=== PATIENT | female | born 1985 | race Caucasian/White ===

== ENCOUNTER → 2018-08-16 14:38 | Outpatient (CLI) | payer OTHER, SELFPAY ==
[2018-08-16 15:23] LABS: Add Manual Diff / Slide Review NO; Basophils Absolute Auto 0 /uL (0-100); Basophils Percent Auto 0.5 % (0-2); Eosinophils Absolute Auto 0 /uL (0-450); Eosinophils Percent Auto 0.6 % (2-4); Hematocrit 35.6 % (36-46); Hemoglobin 12.3 g/dL (12.0-16.0); Lymphocytes Absolute Auto 1600 /uL (1100-4500); Lymphocytes Percent Auto 28.7 % (25-40); Mean Corpuscular HGB Conc 34.6 % (30-36); Mean Corpuscular Hemoglobin 30.4 PG (26-34); Mean Corpuscular Volume 87.9 fL (80-100); Monocytes Absolute Auto 400 /uL (0-900); Monocytes Percent Auto 6.9 % (3-14); Neutrophils Absolute Auto 3600 /uL (1500-7000); Neutrophils Percent Auto 63.3 % (50-75); Platelet Count 279 X10^3/uL (150-400); Red Blood Cell Count 4.06 X10^6/uL (4.0-5.2); Red Cell Distribution Width 13.1 % (11.6-14.8); White Blood Cell Count 5.7 X10^3/uL (4.5-11.0)
[2018-08-16 16:05] LABS: Appearance Urine UA CLEAR; Bilirubin Urine UA NEGATIVE (NEGATIVE); Color Urine UA YELLOW; Glucose Urine UA NEGATIVE (Negative); Ketones Urine UA NEGATIVE (NEGATIVE); Leukocyte Esterase Urine UA TRACE (NEGATIVE); Nitrite Urine UA NEGATIVE (Negative); Occult Blood Urine UA NEGATIVE (Negative); Protein Urine UA NEGATIVE (Negative); Urobilinogen Urine UA 0.2 E.U./dL (0.2)
[2018-08-16 16:29] LABS: Bacteria Urine Few (2-10); Culture Indicated Urine Cult Not Indicated; RBC Urine 0-1/HPF (0-5/HPF); Squamous Epithelial Cell Urine 1-5 /HPF (0-5/HPF); WBC Urine 0-1/HPF (0-5/HPF)
[2018-08-16 17:13] LABS: Hepatitis B Surface Antigen NEGATIVE s/c (NEGATIVE); Rubella Antibody IgG 65.6 IU/mL (>15)
[2018-08-16 17:33] LABS: Hep C Virus Ab w/Reflex Quant NEGATIVE s/c (NEGATIVE)
[2018-08-16 18:45] LABS: HIV 1 and 2 Antibody NEGATIVE (NEGATIVE)
[2018-08-18 13:08] LABS: RPR Screen Nonreactive (Nonreactive)
== END ==
PROVIDERS: Visit Provider Specialist
DX: Z34.81 Encounter for supervision of other normal pregnancy, first trimester (principal)
CPT/HCPCS: 36415; 80055; 81003; 81015; 86703; 86787; 86803; 86850; 86900; 86901; 87086

== ENCOUNTER → 2018-09-22 16:52 | Outpatient (CLI) | payer OTHER, SELFPAY ==
[2018-09-28 09:14] LABS: Calc Gestational Age 18.3; Cigarette Smoker N; Donated Egg NOT GIVEN; Donor Egg Age NOT GIVEN; Estriol, Free 1.38 ng/mL; Inhibin A, Dimeric 119 pg/mL; Maternal Weight 156 lbs; Number of Fetuses 1; Previous Pregnancy Down Syndro NOT GIVEN; hCG, MoM 0.74; hCG, Serum 16.8 IU/mL
== END ==
PROVIDERS: Visit Provider Specialist
DX: Z34.82 Encounter for supervision of other normal pregnancy, second trimester (principal); Z3A.18 18 weeks gestation of pregnancy
CPT/HCPCS: 36415; 82105; 82677; 84702; 86336

== ENCOUNTER → 2018-10-04 08:55 | Outpatient (CLI) | payer OTHER, SELFPAY ==
--- NOTE | 2018-10-04 08:58 | DI.US.S_ITS ---
PROCEDURE: US OB >= 14 WEEKS FETUS INDICATIONS: ANATOMIC SURVEY OUTSIDE/PRIOR DATING DATA: Last menstrual period (LMP): 03/16/19. LMP-based estimated date of delivery (MAX): 02/21/19. First dating scan (date and location): 07/15/18. Estimated date of delivery (MAX) from first dating scan: 02/18/19. TECHNIQUE: Real-time scanning was performed of the fetus, with image documentation and biometric measurements. Endovaginal scanning: No COMPARISON: None. FINDINGS: General: A single living intrauterine gestation is present. Presentation: Variable. Placenta: Placental position is anterior, without previa. Amniotic fluid index: 19.4 cm, normal range is 5-24 cm. heart rate: 139 beats per minute. Maternal cervical canal: 3.9 cm long. Normal lower limit is 2.5 cm. biometrics: Biparietal diameter: 21 weeks 3 days Head circumference: 21 weeks 0 days Abdominal circumference: 21 weeks 5 days Femur length: 21 weeks Estimated gestational age from initial scan: 20 weeks 3 days Composite gestational age from present scan: 21 weeks 3 days Estimated weight and percentile: 416 g; 89th percentile Measurement variability for biometric dating: +/- 7 days from 14 weeks to 15 weeks 6 days gestation, +/- 10 days from 16 weeks to 21 weeks 6 days gestation, +/- 2 weeks from 22 weeks to 27 weeks 6 days gestation, +/- 3 weeks for 28 weeks gestation or later. weight reference: 4500 g or EFW >90/95% is considered macrosomia or large for gestational age. EFW <10% is small for gestational age. EFW 5% or less is considered intra-uterine growth restriction. Anatomic survey: Neuro: Ventricles are non-dilated at less than 10 mm. Cisterna magna is normal at 3-11 mm. Cerebellum is normal in size and morphology. Nuchal skin fold: Normal at less than 6 mm between 14-21 weeks gestational age. Face: Nose and lips, facial profile are normal. Spine: Not well-seen. Heart: 4-chambered heart is present, with normal ventricular outflow tracts. Diaphragm: Diaphragm is intact. Stomach: Left-sided stomach is present. Possible small hepatic calcification. Kidneys: Prominence of the left renal pelvis measuring 5.1 mm. Normal appearance of the right kidney.. Normal is less than 5 mm in 2nd trimester, less than 7 mm in 3rd trimester. Cord: 3-vessel cord has orthotopic insertion. Bladder: Normal in size. Extremities: All 4 extremities identified. IMPRESSION: 1. Single living IUP redemonstrated and interval growth is upper limits of normal. 2. Spine not well visualized and there is mild left renal pyelectasis. Short-term followup ultrasound recommended. 3. Possible small hepatic calcification which can be reassessed on followup examination. Dictated by: Waldemar PATEL Interpreted: Katelyn Mei MD on 10/04/2018 at 13:16 Approved by: Katelyn Mei M.D. on 10/04/2018 at 14:01
== END ==
PROVIDERS: PCP Physician Assistant Medical; Visit Provider Specialist
DX: Z34.82 Encounter for supervision of other normal pregnancy, second trimester (principal); Z3A.21 21 weeks gestation of pregnancy
CPT/HCPCS: 76811

== ENCOUNTER → 2018-11-21 08:37 | Outpatient (CLI) | payer OTHER, SELFPAY ==
[2018-11-21 10:21] LABS: Hemoglobin 11.2 g/dL (12.0-16.0)
[2018-11-21 10:42] LABS: GTT (PREG) 1 Hour PP 50gm Dose 107 mg/dL (76-139)
== END ==
PROVIDERS: PCP Physician Assistant Medical; Visit Provider Specialist
DX: Z3A.26 26 weeks gestation of pregnancy (principal)
CPT/HCPCS: 36415; 82950; 85014; 85018

== ENCOUNTER → 2019-01-18 15:59 | Outpatient (CLI) | payer OTHER, SELFPAY ==
[2019-01-19 18:51] LABS: Strep Grp B PCR NEG for Grp B Strep
== END ==
PROVIDERS: PCP Physician Assistant Medical; Visit Provider Specialist
DX: Z34.03 Encounter for supervision of normal first pregnancy, third trimester (principal); Z3A.35 35 weeks gestation of pregnancy
CPT/HCPCS: 87653

== ENCOUNTER 2019-02-15 18:38 | Inpatient (IN) | payer OTHER, SELFPAY ==
[2019-02-15] MEDS: miSOPROStoL 25 MCG TABLET VAG (20:09)
[2019-02-15 22:10] LABS: Add Manual Diff / Slide Review NO; Basophils Absolute Auto 100 /uL (0-100); Basophils Percent Auto 0.7 % (0-2); Eosinophils Absolute Auto 0 /uL (0-450); Eosinophils Percent Auto 0.3 % (2-4); Hematocrit 29.9 % (36-46); Hemoglobin 10.4 g/dL (12.0-16.0); Lymphocytes Absolute Auto 1300 /uL (1100-4500); Lymphocytes Percent Auto 17.8 % (25-40); Mean Corpuscular Volume 85.8 fL (80-100); Monocytes Absolute Auto 600 /uL (0-900); Monocytes Percent Auto 7.5 % (3-14); Neutrophils Absolute Auto 5600 /uL (1500-7000); Neutrophils Percent Auto 73.7 % (50-75); Platelet Count 212 X10^3/uL (150-400); Red Blood Cell Count 3.48 X10^6/uL (4.0-5.2); Red Cell Distribution Width 13.1 % (11.6-14.8); White Blood Cell Count 7.6 X10^3/uL (4.5-11.0)
[2019-02-16] MEDS: miSOPROStoL 25 MCG TABLET VAG (00:11)
[2019-02-16] MEDS: LACTATED RINGERS 1,000 ML 100 ML IV ×2 (02:00→05:04)
--- NOTE | 2019-02-16 04:36 | P.HPOB_ITS ---
OB HPI Date/Time Date of admission: 02/15/19 Date Patient Seen: 02/16/19 Time Patient Seen: 04:40 History of Present Condition Chief complaint: eval of labor : 4 Para: 3 Estimated Date of Delivery: 02/21/19 Estimated Gestational Age (weeks): 39 Narrative: Inna Colmenares is a 33 year old female admitted for induction for child care sitter reasons Indications Indication for induction OB: other History of Present care: good care, initiated at week # (8), number of visits (12) and sam nds weight gain (24) Dating criteria: LMP confirmed by 1st trimester US Ultrasounds: normal mid trimester US Obstetrical complications: none Medical complications: none Preadmission Labs Blood type: O (+) positive -: Antibody screen: negative, GBS status: negative, HBsAG: negative, HIV: negative and RPR/VDLR: negative -: Chlamydia screen: not detected and Gonorrhea screen: not detected -: Rubella: immune and Varicella: immune Quad screen: Normal 1 hr GTT: 107 Prior (ies) History: 12/12/2005 40 weeks 7 lb 14 oz male vaginal delivery 05/10/2008 40 weeks 8 lb 3 oz male vaginal delivery 01/01/2016 40 week 7 lb 15 oz male vaginal delivery Evaluation Evaluation Baseline heart rate: 120 Variability: Moderate (11-25) monitor accelerations: Present monitor decelerations: Absent Contraction Frequency (minutes): 3 Uterine Contraction Intensity: Strong/Firm Category of Tracing: I Cervical dilation (cm): 4 Cervical effacement (%): 90 station: 0 Laboratory results: Laboratory Tests 02/15/19 02/15/19 21:50 21:50 WBC 7.6 RBC 3.48 L Hgb 10.4 L Hct 29.9 L MCV 85.8 MCH 30.0 MCHC 35.0 RDW 13.1 Plt Count 212 Neut % (Auto) 73.7 Lymph % (Auto) 17.8 L [place] % (Auto) 7.5 Eos % (Auto) 0.3 L Baso % (Auto) 0.7 Neut # (Auto) 5600 Lymph # (Auto) 1300 [place] # (Auto) 600 Eos # (Auto) 0 Baso # (Auto) 100 Blood Type O Positive Antibody Screen Negative [facility] Surgical History (Updated 02/13/19 @ 11:36 by Susanna Grover MD) H/O hemorrhoidectomy (Acute ~2006) H/O shoulder surgery (Acute ~2011) Social History Smoking Status: Never smoker Meds Home Medications and Allergies Home Medications Medication Instructions Recorded Confirmed Type acetaminophen 325 mg capsule 325 mg PO Q6H PRN 07/12/18 07/12/18 History diphenhydramine HCl 50 mg capsule 50 mg PO BEDTIME PRN 07/12/18 07/12/18 History prenat.vits,geo,era-kjuz-jtlqr 1 tab PO DAILY 07/12/18 07/12/18 History breast pump #1 each 02/03/19 02/03/19 Rx Allergies Allergy/AdvReac Type Severity Reaction Status Date / Time No Known Drug Allergies Allergy Verified 07/12/18 16:36 Review of Systems Review of Systems ROS Unobtainable: All systems reviewed & are unremarkable except as noted in HPI and below Exam Vital Signs (past 8 hours): Blood pressure 108/64, pulse 78, temperature 37.3? Narrative Exam Narrative: HEENT exam within normal limits. Lungs are clear to auscultation percussion. Heart is regular rate and rhythm no S3-S4 or murmurs. Abdomen is gravid. Infant is vertex. Extremities without edema and nontender Objective Labs Result Diagrams: 02/15/19 21:50 Labs: Laboratory Results - last 24 hr 02/15/19 02/15/19 21:50 21:50 WBC 7.6 RBC 3.48 L Hgb 10.4 L Hct 29.9 L MCV 85.8 MCH 30.0 MCHC 35.0 RDW 13.1 Plt Count 212 Neut % (Auto) 73.7 Lymph % (Auto) 17.8 L [place] % (Auto) 7.5 Eos % (Auto) 0.3 L Baso % (Auto) 0.7 Neut # (Auto) 5600 Lymph # (Auto) 1300 [place] # (Auto) 600 Eos # (Auto) 0 Baso # (Auto) 100 Blood Type O Positive Antibody Screen Negative Assessment and Plan Assessment and Plan Assessment and Plan narrative: 39 week gestation admitted for induction for child care sitter now in active labor
[2019-02-16] MEDS: OXYTOCIN 10 UNIT/ML VIAL IM (05:30)
--- NOTE | 2019-02-16 05:42 | PM.OBPRVD ---
 Events: Labor Induction (For children's lunchroom supervisor issues) Labor & Delivery Delivery date: 02/16/19 Intrapartal events: None Cervical ripening method: per misoprostal protocol Delivery monitor: external FHT Route of delivery: L&D Laceration Description: None Estimated blood loss (mL): 100 Anesthesia type: Spinal Narrative: Patient arrived on Labor and delivery for induction for children's lunchroom supervisor issues. She received Cytotec x2. She received an epidural catheter for pain control. heart tones category 1 to category 2 throughout labor. She had a spontaneous vaginal delivery a viable male infant who was placed immediately on maternal abdomen. There was a shoulder cord. After the cord stopped pulsating the cord was clamped, cut, and cord bloods obtained. The placenta delivered spontaneously, intact, with 3 vessels. There were no cervical, vaginal, perineal tears. Both mother doing well. Baby weighs 7 lb 14 oz Baby 1: gender: Male Presentation: vertex position: Right Occiput Anterior Placenta delivery description: Spontaneous cord vessel description: 3 Vessels score (1 min): 9 score (5 min): 9 Plan for aftercare: Routine care
[2019-02-16] MEDS: IBUPROFEN 600 MG TABLET PO ×3 (07:52→21:16)
[2019-02-16] MEDS: DOCUSATE 100 MG CAPSULE PO (07:53)
[2019-02-16] MEDS: FERROUS GLUCONATE 324 MG TABLET PO (07:54)
[2019-02-16] MEDS: ACETAMINOPHEN 325 MG TABLET 650 MG PO (12:16)
[2019-02-16] MEDS: CLOTRIMAZOLE/BETAMETHASONE CRM 15 GM 1 APPLIC TOP (18:21)
[2019-02-16] MEDS: HYDROCODONE/ACET 5/325 TABLET 2 TAB PO (21:17)
[2019-02-17] MEDS: IBUPROFEN 600 MG TABLET PO ×2 (03:24→09:46)
[2019-02-17 06:14] LABS: Hematocrit 26.3 % (36-46); Hemoglobin 9.4 g/dL (12.0-16.0)
--- NOTE | 2019-02-17 07:39 | PM.OBDS.1 ---
Discharge Providers Provider Date of admission: 02/15/19 18:38 Discharge Date: 02/17/19 Primary care physician: Wilberto Berg Consults: 02/16/19 03:24 Consult to Anesthesiology Urgent Comment: Consulting Provider: Anesthesiologist Reason for consultation: Epidural Has provider been notified: No 02/17/19 05:40 Consult to Driller Operator Routine Comment: Discharge provider: Susanna Grover MD Summary Hospital Course Date Patient Seen: 02/17/19 Time Patient Seen: 07:39 Procedures: Prostin induction, epidural catheter, vaginal delivery Hospital Course: Patient was admitted for Prostin induction for availability of children's entertainer. She went into active labor with the Prostin and received an epidural catheter for pain control. She had a spontaneous vaginal delivery with no tears. Both infant mother doing well post . Peripartum Data Infant Delivery Method: Natural Vaginal Laceration description: None Procedures: Prostin induction, epidural catheter, vaginal delivery complications: none [place] 1: Gender: Male Disposition of : home Discharge Diagnosis (1) Vaginal delivery: Status: Acute (2) Anemia: Status: Acute Status at Discharge Cognitive/behavioral status at discharge: oriented Functional status at discharge: independent ambulation Overall status at discharge: patient is progressing back to baseline Time Spent with Patient Time attestation: Total time spent providing and/or coordinating discharge services: Time spent: Less than 30 minutes Objective Labs Result Diagrams: 02/17/19 05:40 Labs: Laboratory Results - last 24 hr 02/17/19 05:40 Hgb 9.4 L Hct 26.3 L Exam Vital Signs (past 8 hours): Blood pressure 111/73, pulse 70, temperature 98.8? Narrative Exam Narrative: Abdomen is soft, nontender. Uterus is firm, at U, nontender. Mild lochia. Extremities without edema and nontender. Patient is O-positive, rubella immune, received Tdap in the 3rd trimester. Discharge Plan Discharge Plan Patient Disposition: Home Discharge orders & Medications Prescriptions: New ibuprofen 600 mg Tablet 600 mg PO Q6HR PRN (Reason: Pain, Mild (1-3)) Qty: 30 RF: 0 ferrous gluconate 324 mg (38 mg iron) Tablet 324 mg PO DAILY Qty: 60 RF: 0 Continued diphenhydramine HCl [Unisom SleepGels] 50 mg capsule 50 mg PO BEDTIME PRN (Reason: Insomnia) RF: 0 prenat.vits,geo,yli-odjd-ovlla tablet 1 tab PO DAILY RF: 0 acetaminophen [Tylenol] 325 mg capsule 325 mg PO Q6H PRN (Reason: Pain, Mild) RF: 0 (DME) breast pump [Pump In Style Advanced] Device See Rx Instructions .ROUTE .MEDSUPPLY Qty: 1 RF: 0 Follow up/Referrals: Susanna Grover MD [Physician] - 1 Month Wilberto Berg [Primary Care Provider] - Diet/Activity/Treatments Diet: Regular Activity: Nothing in vagina for 4 weeks Visit Report/Discharge Packet Stand Alone Forms: Discharge: Care Discharge Data Primary Care Provider: Wilberto Berg
[2019-02-17 08:58] VITALS: BP 105/66; PULSE 66; RESP 18; TEMP 36.7
[2019-02-17] MEDS: FERROUS GLUCONATE 324 MG TABLET PO (09:46)
[2019-02-17] MEDS: DOCUSATE 100 MG CAPSULE PO (09:46)
== END 2019-02-17 10:54 | disposition home or self-care (01) | DRG 807 ==
PROVIDERS: Admitting Provider Specialist; PCP Physician Assistant Medical; Visit Provider Specialist
DX: O99.02 Anemia complicating childbirth (principal); Z37.0 Single live birth; Z3A.39 39 weeks gestation of pregnancy; D64.9 Anemia, unspecified
CPT/HCPCS: 01967; 36415; 59050; 59200; 59400; 85014; 85018; 85025; 86850; 86900; 86901; G0379; J2590

== ENCOUNTER → 2019-11-20 12:23 | Outpatient (CLI) | payer OTHER, SELFPAY ==
[2019-11-20 13:24] LABS: Add Manual Diff / Slide Review NO; Basophils Absolute Auto 0 /uL (0-100); Basophils Percent Auto 0.9 % (0-2); Eosinophils Absolute Auto 100 /uL (0-450); Eosinophils Percent Auto 2.1 % (2-4); Hematocrit 36.8 % (36-46); Hemoglobin 12.5 g/dL (12.0-16.0); Lymphocytes Absolute Auto 1600 /uL (1100-4500); Lymphocytes Percent Auto 28.7 % (25-40); Mean Corpuscular HGB Conc 34.1 % (30-36); Mean Corpuscular Hemoglobin 29.2 PG (26-34); Mean Corpuscular Volume 85.6 fL (80-100); Monocytes Absolute Auto 400 /uL (0-900); Monocytes Percent Auto 7.6 % (3-14); Neutrophils Absolute Auto 3400 /uL (1500-7000); Neutrophils Percent Auto 60.7 % (50-75); Platelet Count 255 X10^3/uL (150-400); Red Cell Distribution Width 12.5 % (11.6-14.8); White Blood Cell Count 5.6 X10^3/uL (4.5-11.0)
[2019-11-20 14:01] LABS: HEMOLYSIS < 15 (0-50); Iron 123 ug/dL (37-170)
[2019-11-20 14:13] LABS: Percent Iron Saturation 35 % (15-50); Total Iron Binding Capacity 349 ug/dL (265-497); Transferrin 274 mg/dL (206-381)
[2019-11-20 14:36] LABS: Ferritin 15 ng/mL (6-137)
[2019-11-20 14:37] LABS: TSH w/ Reflex to FT4 0.83 uIU/mL (0.47-4.68)
[2019-11-20 15:05] LABS: Vitamin D 25 Hydroxy (D3) 36.2 ng/mL (30.0-100.0)
== END ==
PROVIDERS: PCP Registered Nurse Diabetes Educator; Referring Provider Registered Nurse Diabetes Educator; Visit Provider Registered Nurse Diabetes Educator
DX: L65.9 Nonscarring hair loss, unspecified (principal); R53.83 Other fatigue
CPT/HCPCS: 36415; 82306; 82728; 83540; 83550; 84443; 85025

== ENCOUNTER → 2020-02-06 09:07 | Outpatient (CLI) | payer OTHER, SELFPAY ==
[2020-02-06 13:57] LABS: COVID19 -Nasal RAPID Negative (Negative)
== END ==
PROVIDERS: PCP Registered Nurse Diabetes Educator; Visit Provider Physician Assistant
DX: Z01.812 Encounter for preprocedural laboratory examination (principal)
CPT/HCPCS: 87635

== ENCOUNTER 2020-02-09 08:17 | Day surgery (SDC) | payer OTHER, SELFPAY ==
[2020-02-05 12:39] VITALS: BMI 26.7
[2020-02-09] VITALS (17 sets, daily range): BP systolic 75–121; BP diastolic 41–72; PULSE 52–98; RESP 12–22; TEMP 36.3–37.6; O2SAT 94–100; BMI 26.5
[2020-02-09] MEDS: LACTATED RINGERS 1,000 ML 42 ML IV ×2 (08:47→11:44)
--- NOTE | 2020-02-09 09:48 | PM.GYNHP.1 ---
History of Present Illness History of Present Illness Reason for admission: pelvic prolapse (Cystocele) Narrative: Inna Richardson is a 34 year old female with complaints prolapse cystocele predominant. Patient also with menorrhagia. [facility] Medical History (Updated 02/09/20 @ 09:52 by Susanna Grover MD) Vaginal delivery (Inactive) Surgical History H/O hemorrhoidectomy (Acute ~2006) H/O shoulder surgery (Acute ~2011) Social History household members: spouse and children Smoking Status: Never smoker alcohol intake: current Meds Home Medications and Allergies Home Medications Medication Instructions Recorded Confirmed Type prenat.vits,geo,yll-iuzx-azypt 1 tab PO DAILY 07/12/18 02/09/20 History breast pump #1 each 02/03/19 11/20/19 Rx escitalopram oxalate 10 mg tablet 10 mg PO DAILY #90 tab 11/20/19 02/09/20 Rx ibuprofen 200 mg capsule 200 mg PO Q6H PRN 11/20/19 02/05/20 History melatonin 5 mg capsule 5 mg PO PRN PRN 11/20/19 02/09/20 History Allergies Allergy/AdvReac Type Severity Reaction Status Date / Time meperidine [From Demerol] AdvReac Intermediate Vomiting Verified 02/09/20 08:27 Review of Systems Review of Systems Narrative: Patient has minimal stress urinary incontinence. No pain with intercourse. Patient tried pessary and physical therapy for prolapse without significant improvement. She denies any problems with bowel movements. She does complain of heavy menses. ROS: Yes All systems reviewed with the patient and are negative except as otherwise documented Exam Vital Signs (past 8 hours): - 02/09/20 08:32 Temperature 98.3 F Pulse Rate 59 L Respiratory Rate 18 Blood Pressure 114/71 Pulse Oximetry 99 Oxygen Delivery Method Room Air Oxygen Flow Rate 0 Narrative Exam Narrative: On physical exam HEENT exam within normal limits. Lungs are clear to auscultation and percussion. Heart is regular rate and rhythm no S3-S4 or murmurs. No thyromegaly. Abdomen is soft, nontender with no palpable organomegaly. The patient's external genitalia are normal. Vaginal tissue is normal. Cervix is normal. Uterus is small, mobile, nontender. No adnexal masses or tenderness. Rectal exam does not reveal any masses and no significant rectocele. With standing Valsalva the patient does have a cystocele that prolapses just out of the hymen. The uterus does not prolapse significantly with standing Valsalva. Consent form was reviewed with the patient. Risk of damage to bladder, bowel, ureters, urethra that could require additional surgery to repair. 10% risk of infection that could require additional antibiotics. 5% risk of scar tissue that could cause pain with intercourse. Up to 30% risk of additional or recurrent prolapse after the procedure. Reaction to medication or anesthetic that could cause or permanent partial disability. Minimal risk for bleeding enough to require blood transfusion. Consent form was signed and questions answered. Consent form for the Mirena IUD was reviewed with the patient. She has had the IUD twice before and she has no additional questions. Assessment & Plan Assessment and plan (1) Cystocele without uterine prolapse: Status: Acute (2) Menorrhagia with irregular cycle: Status: Acute Assessment & Plan narrative: Patient with uterovaginal prolapse cystocele predominant. Patient is requesting anterior and posterior repair. She will be evaluated to see if sacrospinous ligament fixation is appropriate at the time. Patient with menorrhagia requesting placement of her Mirena IUD. COVID-19 COVID-19 status: Negative Result date/Date tested (Pos, Neg/Pending): 02/06/20
--- NOTE | 2020-02-09 09:53 | PM.PREOP ---
Pre-operative Note COVID-19 COVID-19 status: Negative Result date/Date tested (Pos, Neg/Pending): 02/06/20 Interval Note History & Physical reviewed/Exam performed by Physician: Yes Changes to H&P: No
[2020-02-09] MEDS: CEFAZOLIN 2 GM/100 ML FROZ.PIGGY IV (09:55)
--- NOTE | 2020-02-09 10:13 | SUR.OPER ---
Lithotomy on padded OR bed, head on pillow, arms secured on padded arm boards at <90 degrees abduction. Legs secured in padded yellow fins stirrups.
--- NOTE | 2020-02-09 10:17 | SUR.OPER ---
Lithotomy on padded OR bed, head on pillow, arms secured on padded arm boards at <90 degrees abduction. Legs secured in padded yellow fins stirrups.
[2020-02-09] MEDS: BUPIVACAINE 0.5% W/ EPI (PF) 30 ML VIAL 10 ML INJ (10:25)
--- NOTE | 2020-02-09 11:12 | PM.OP.1 ---
Operative Date/Time/Diagnoses Date of procedure: 02/09/20 Time of procedure: 11:12 Pre-op diagnosis: Uterovaginal prolapse and menorrhagia Post-op diagnosis: same Procedure & Clinicians Procedure: Anterior and posterior repair with sacrospinous ligament fixation, perineoplasty and placement of Mirena IUD Same procedure as scheduled: Yes Indications: Symptomatic uterovaginal prolapse with menorrhagia and need for control Surgeon: Susanna Grover Click Yes if Unassisted: Yes Anesthesia Type: General Operative Notes Findings: Cystocele that prolapses out of the hymen, uterus prolapsed down to the hymen with traction, mild rectocele, mildly gaping introitus, uterus not enlarged with no adnexal masses on exam under anesthesia Closure Type: primary Specimen(s): none sent Prosthetic devices, grafts, tissues, transplants, or devices: Mirena IUD Applied: catheter (Hudson) and other (Vaginal packing) Estimated Blood Loss (mL): 50 Blood products transfused: none Procedure in detail: Patient was brought to the operating room where she was placed [facility] stirrups and prepped and draped in the usual sterile fashion. A 20 point check system was reviewed prior to the beginning of the case. Pulsatile stockings were in place and functional throughout the case. Warming was in place. 2 g of Ancef were in prior to beginning of the case. A Hudson catheter was placed. A dilute solution of 1% lidocaine with epinephrine was injected over the cystocele. An incision was made over the cystocele and the incision dissected laterally. Plicating sutures were made over the cystocele with 2 0 Vicryl suture. The incision was closed with 2-0 Vicryl suture. Next a wedge shaped tissue was taken out of the posterior vaginal opening. The area over the rectocele was injected with a dilute solution of 1% lidocaine with epinephrine. An incision was made over the rectocele with the scalpel. The dissection was undertaken laterally. Prolene suture with the Capio passer was placed through the uterosacral ligament on the right side and sutured to the underside of the cervix. The Capio Passer was placed through the uterosacral ligament on the left side and sutured to the underside of the vagina on the left side. A finger was placed in the rectum to be sure there were no sutures placed through the rectal mucosa. The uterosacral sutures were tightened down. 0 Vicryl suture was used to plicate over the rectocele. And the vaginal incision was closed with 2-0 Vicryl suture. The perineal body was built up with 2 0 Vicryl sutures. The skin was closed with the 2-0 Vicryl suture. Vaginal packing was placed in the vagina and the Hudson left in place. Counts of instruments and sponges were correct. The patient went to recovery room in good condition. Complications: none
--- NOTE | 2020-02-09 11:41 | SUR.PHASEI ---
Pt arrived to PACU with oral airway and chin support as well and 02 added for patent airway, BP low, treated with ephedrine given by Dr. Childers, IV fluids wide open and HOB down. Shakes treated with bear hugger.
[2020-02-09] MEDS: fentaNYL 100 MCG/2 ML INJ IV (11:47)
--- NOTE | 2020-02-09 11:49 | SUR.PHASEI ---
Fentanyl given for pain, report to KIMBERLEE Aragon and Cecilia MOHAN
[2020-02-09] MEDS: OXYCODONE IR 5 MG TABLET PO ×3 (12:19→20:27)
[2020-02-09] MEDS: ONDANSETRON 4 MG/2 ML INJ IV ×2 (12:19→18:15)
[2020-02-09] MEDS: LACTATED RINGERS 1,000 ML 100 ML IV (13:15)
--- NOTE | 2020-02-09 13:49 | PC.NURSE ---
Day Shift- Report rec'd from KIMBERLEE negro in PACU at 1225. pt arrived to unit at 1240 to room 220. Pt assisted herself from PACU stretcher to bed. Rated 7/10 pain to coccyx area, assisted onto left side per pt request, 1 pillow behind her back and 1 in between BLE. Ice pack also placed to coccyx and lower back area., pt stated this was helping. Pt's Ojnathon in room, aware to keep mask on at all times. Pt oriented to call light, bed functions. Calf SCD's to BLE per order. Vaginal packing in place, dara-pad has scant amount of sang drainage. Hudson insitu draining clear yellow urine. IVF infusing to right FA PIV per order. No other voiced concerns, call light within reach.
--- NOTE | 2020-02-09 15:55 | SUR.PHASEI ---
Late entry: Pt brought up to room 220 and left her with Lida and left in stable condition.
[2020-02-09] MEDS: KETOROLAC 30 MG/ML VIAL IV ×2 (16:37→21:57)
[2020-02-09] MEDS: DOCUSATE 250 MG CAPSULE PO (20:27)
[2020-02-09] MEDS: MELATONIN 3 MG TABLET 6 MG PO (21:57)
[2020-02-10 00:50] VITALS: BP 106/73; PULSE 77; RESP 16; TEMP 37; O2SAT 96
[2020-02-10] MEDS: OXYCODONE IR 5 MG TABLET PO ×2 (00:54→08:05)
[2020-02-10] MEDS: KETOROLAC 30 MG/ML VIAL IV ×2 (03:46→09:38)
[2020-02-10 04:15] VITALS: BP 109/69; PULSE 74; RESP 16; TEMP 36.4; O2SAT 100
[2020-02-10 05:28] LABS: Add Manual Diff / Slide Review NO; Basophils Absolute Auto 0 /uL (0-100); Basophils Percent Auto 0.3 % (0-2); Eosinophils Absolute Auto 0 /uL (0-450); Eosinophils Percent Auto 0.1 % (2-4); Hematocrit 31.7 % (36-46); Hemoglobin 10.8 g/dL (12.0-16.0); Lymphocytes Absolute Auto 1500 /uL (1100-4500); Lymphocytes Percent Auto 14.4 % (25-40); Mean Corpuscular Hemoglobin 29.3 PG (26-34); Mean Corpuscular Volume 85.9 fL (80-100); Monocytes Absolute Auto 700 /uL (0-900); Monocytes Percent Auto 7.2 % (3-14); Neutrophils Absolute Auto 7900 /uL (1500-7000); Platelet Count 211 X10^3/uL (150-400); Red Blood Cell Count 3.68 X10^6/uL (4.0-5.2); Red Cell Distribution Width 13.3 % (11.6-14.8); White Blood Cell Count 10.1 X10^3/uL (4.5-11.0)
[2020-02-10] MEDS: DOCUSATE 250 MG CAPSULE PO (08:06)
[2020-02-10] MEDS: SODIUM CHLORIDE 0.9% FLUSH 10 ML IV (08:06)
--- NOTE | 2020-02-10 08:51 | P.DS_ITS ---
History of Present Illness History of Present Illness Date Patient Seen: 02/10/20 Time Patient Seen: 08:51 Date of Onset of Symptoms: 02/09/20 Chief complaint: OPB Narrative: Patient underwent a anterior and posterior repair with sacrospinous ligament fixation on 02/09/2020. Vaginal packing and Hudson catheter removed today. She is having pain but is ambulatory. She passed her postvoid residual. Discharge Providers Provider Discharge Date: 02/10/20 Primary care physician: GABY Samayoa Discharge provider: Susanna Grover MD Summary Hospital Course Discharge Diagnosis: Uterovaginal prolapse Hospital Course: Patient underwent anterior and posterior repair with sacrospinous ligament fixation and perineoplasty for partial uterovaginal prolapse. Patient had vaginal packing of Hudson placed postoperatively. They were removed on the a.m. of 02/10/2020. Status at Discharge Cognitive/behavioral status at discharge: oriented Functional status at discharge: independent ambulation Overall status at discharge: patient is progressing back to baseline Time Spent with Patient Time spent: Less than 30 minutes Exam Vital Signs (past 8 hours): - 02/10/20 04:15 Temperature 97.5 F L Pulse Rate 74 Respiratory Rate 16 Blood Pressure 109/69 Pulse Oximetry 100 Oxygen Delivery Method Room Air Oxygen Flow Rate 0 Narrative Exam Narrative: Abdomen is soft, nontender. Vaginal packing had minimal blood on it. Hudson was removed without difficulty. Extremities without edema and non tender. Objective Labs Result Diagrams: 02/10/20 05:00 Labs: Laboratory Results - last 24 hr 02/10/20 05:00 WBC 10.1 RBC 3.68 L Hgb 10.8 L Hct 31.7 L MCV 85.9 MCH 29.3 MCHC 34.0 RDW 13.3 Plt Count 211 Neut % (Auto) 78.0 H Lymph % (Auto) 14.4 L [place] % (Auto) 7.2 Eos % (Auto) 0.1 L Baso % (Auto) 0.3 Neut # (Auto) 7900 H Lymph # (Auto) 1500 [place] # (Auto) 700 Eos # (Auto) 0 Baso # (Auto) 0 Discharge Assessment & Plan Assessment and Plan Assessment: Postoperative anterior and posterior repair with sacrospinous ligament fixation and perineoplasty. Plan of Treatment: Home Discharge Plan Discharge Plan Patient Disposition: Home Discharge orders & Medications Discharge Orders: Discharge (Order); Ordered 02/10/20 Ordered By: Susanna Grover Prescriptions: New oxycodone-acetaminophen [Percocet] 5-325 mg tablet 2 tab PO Q4-6H PRN (Reason: pain) Qty: 30 RF: 0 ibuprofen 600 mg tablet 600 mg PO Q6H PRN (Reason: pain) Qty: 30 RF: 0 oxycodone-acetaminophen [Percocet] 5-325 mg tablet 2 tab PO Q4-6H PRN (Reason: pain) Qty: 30 RF: 0 Continued prenat.vits,geo,wmw-qgrr-sagle tablet 1 tab PO DAILY RF: 0 melatonin 5 mg capsule 5 mg PO PRN PRN (Reason: Sleep) RF: 0 escitalopram oxalate 10 mg tablet 10 mg PO DAILY Qty: 90 RF: 3 Discontinued ibuprofen [Motrin IB] 200 mg capsule 200 mg PO Q6H PRN (Reason: Pain) RF: 0 No Action (DME) breast pump [Pump In Style Advanced] Device See Rx Instructions .ROUTE .MEDSUPPLY Qty: 1 RF: 0 Follow up/Referrals: Susanna Grover MD [Physician] - 2 Weeks Rogers Byrne ARNP [Primary Care Provider] - Diet/Activity/Treatments Diet: Diet as Tolerated Activity: Nothing in vagina or lifting over 20 lb for 6 weeks Skin/Wound/Dressing Care Report to your healthcare provider any signs of infection, such as:: chills, fever, increased pain and unusual drainage Visit Report/Discharge Packet Instructions: DI for Prescription Opioid Use, Oxycodone/Acetaminophen (By mouth) Stand Alone Forms: Surgery Discharge Discharge Data Primary Care Provider: Rogers Byrne Attending Provider: Susanna Grover Discharges patient from system. Discharge Date/Time: 02/10/20 12:50
[2020-02-10 09:10] VITALS: BP 103/57; PULSE 55; RESP 15; TEMP 36.6; O2SAT 99
[2020-02-10] MEDS: ESCITALOPRAM 10 MG TABLET PO (09:39)
--- NOTE | 2020-02-10 12:20 | CM.DANOTE ---
DCP: Case received, EMR reviewed and met with patient. Introduced self and role. Was able to obtain information from patient regarding her baseline activity status prior to hospitalization. DCP assessment completed with information currently available. Patient is a 34 year old female who admitted yesterday morning to the care of the SANITATION TECHNICIAN team. PCP: GABY Samayoa at [facility]. Payer: confirmed: [facility] health Plan. Patient came to the hospital via private vehicle for a surgical procedure. She had a cystocele, Mirana IUD insertion. Patient has history of uterovaginal prolapse & menorrhagia. Met with patient in her room. She was laying in bed. She is independent at baseline, alert and oriented, pleasant. 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 She used to work at [employer]. She has 4 children, the oldest is 14, the youngest is 1. She resides in [place] with her spouse, Kaleb. Her is active duty [employer], and they are planning on moving to [facility] for 3 years. She is also working on her masters degree for nursing in education. P: Patient has discharge orders for home today. Otilia Bejarano, KIMBERLEE/Plastic Cnc Machine Operator
--- NOTE | 2020-02-10 12:35 | PC.NURSE ---
Patient was up to urinate in bathroom, voided 300 cc without difficulty. PVR shows 0-2mls. Patient ready for discharge to home after lunch. at bedside.
--- NOTE | 2020-02-10 13:34 | PC.NURSE ---
Discharge instructions and home care handouts reviewed with patient. She has no further questions or concerns. Voided without difficulty with no PVR noted, and Dr. Grover notified. IV dc'd intact. Patient states she will call Dr. Gotti office on Wednesday to schedule/confirm follow up appointment. 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 Escorted out via wheelchair with all belongings to home with .
== END 2020-02-10 12:50 | disposition home or self-care (01) ==
LOC: OR 08:21 → AC 08:22
PROVIDERS: PCP Registered Nurse Diabetes Educator; Referring Provider Registered Nurse Diabetes Educator; Visit Provider Specialist
PROC: (CPT 57282; principal; 2020-02-09 09:45)
DX: N81.2 Incomplete uterovaginal prolapse (principal); N92.1 Excessive and frequent menstruation with irregular cycle; Z30.430 Encounter for insertion of intrauterine contraceptive device; N39.3 Stress incontinence (female) (male)
CPT/HCPCS: 57282; 57260; 58300; 36415; 85025; J0690; J1100; J1885; J2250; J2405; J2704; J2765; J3010; J7298